=== PATIENT | male | born 1960 | race Caucasian/White ===

== ENCOUNTER → 2020-10-25 | Outpatient (CLI) | payer OTHER | END | disposition home or self-care (01) | LOC: RAD 16:37 | PROVIDERS: ATTEND Nurse Practitioner Family | DX: M25.562 Pain in left knee (principal) ==

== ENCOUNTER 2021-02-05 06:43 | Emergency (ER) | payer OTHER ==
[~2021-02-05] VITALS: Ht 182.9 cm; Wt 128.8 kg
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
--- NOTE | 2021-02-05 07:29 | NUR ---
OFF THE FLOOR TO XRAY
[2021-02-05 08:26] VITALS: BP 135/84
--- NOTE | 2021-02-05 09:08 | NUR ---
PT REC'VD DISCHARGE INSTRUCTIONS AND EDUCATION. PT HAD NO FURTHER QUESTIONS. PT AMBULATED WITH CRUTCHES TO DC AREA, STEADY GAIT AND COMFORTABLE WITH CRUTCHES.
== END 2021-02-05 09:11 | disposition home or self-care (01) ==
LOC: ED 07:02
DX: S80.02XA Contusion of left knee, initial encounter (principal); M79.89 Other specified soft tissue disorders; X58.XXXA Exposure to other specified factors, initial encounter; Y93.89 Activity, other specified; Y92.89 Other specified places as the place of occurrence of the external cause; Y99.8 Other external cause status
CPT/HCPCS: 99283